=== PATIENT | female | born 1995 | race Caucasian/White ===

== ENCOUNTER 2018-10-04 07:58 | Day surgery (SDC) | payer BC ==
[2018-10-04] MEDS ORDERED: CEFAZOLIN 2 GM/50 ML (PMX) 50 ML IVPB (09:30)
[2018-10-04] MEDS: SOD CHLORIDE 0.9% 1,000 ML IV (10:17)
[2018-10-04] MEDS ORDERED: CEFAZOLIN 1 GM INJ (11:29)
[2018-10-04] MEDS ORDERED: PROPOFOL 20 ML ×2 (11:29→12:10)
[2018-10-04] MEDS ORDERED: METOCLOPRAMIDE 10 MG INJ (11:29)
[2018-10-04] MEDS ORDERED: KETOROLAC 30 MG INJ (11:29)
[2018-10-04] MEDS ORDERED: ONDANSETRON 4 MG INJ (11:29)
[2018-10-04] MEDS ORDERED: FENTAnyl 50 MCG/ML VIAL IV ×3 (11:30)
[2018-10-04] MEDS ORDERED: MEPERIDINE 25 MG INJ IV (11:30)
[2018-10-04] MEDS ORDERED: ONDANSETRON 4 MG INJ IV (11:30)
[2018-10-04] MEDS ORDERED: HYDROmorphONE 1 MG/5 ML IV SYRINGE IV ×3 (11:30)
[2018-10-04] MEDS ORDERED: DIPHENHYDRAMINE 50 MG INJ IV (11:30)
[2018-10-04] MEDS ORDERED: KETOROLAC 30 MG INJ IV (11:30)
[2018-10-04] MEDS ORDERED: OXYCODONE/ACETAMINOPHEN (5/325) TAB PO ×2 (11:30)
[2018-10-04] MEDS ORDERED: FENTAnyl 50 MCG/ML VIAL (11:32)
[2018-10-04] MEDS: BUPIVACAINE 0.25% (MPF) 30 ML INJ (12:19)
[2018-10-04] MEDS ORDERED: HYDROCODONE/APAP (5/325) TAB PO (12:30)
== END 2018-10-04 14:05 | disposition home or self-care (01) ==
LOC: SDS 07:58
DX: D23.4 Other benign neoplasm of skin of scalp and neck (principal); D23.62 Other benign neoplasm of skin of left upper limb, including shoulder; D23.61 Other benign neoplasm of skin of right upper limb, including shoulder
CPT/HCPCS: 14021; 84703; 88307